=== PATIENT | female | born 1945 | race Caucasian/White ===

== ENCOUNTER 2016-12-08 11:40 | Inpatient (IN) | payer MEDICARE, BC ==
[2016-12-08] MEDS ORDERED: ALBUTEROL NEB SOL 2.5MG/3ML 1 VIAL SOL NEB PRN (11:52)
[2016-12-08] MEDS: SOLUMEDROL 125 MG/2 ML 125 MG/2 ML PDS IV SCH ×2 (12:08→18:52)
[2016-12-08] MEDS: ALBUTEROL/IPRATROPIUM 1 VIAL SOL INH PRN (12:09)
[2016-12-08] MEDS: LEVOFLOXACIN 500 MG TAB PO SCH (12:12)
[2016-12-08 12:30] LABS: CALCIUM 8.9 mg/dl (8.5-10.1); POTASSIUM 4.4 mMol/L (3.5-5.1)
[2016-12-08] MEDS: SODIUM CHLORIDE 0.9% FLUSH 10 ML SOL IV SCH ×2 (12:48→21:22)
[2016-12-08] MEDS ORDERED: NOVOLOG FLEXPEN SC ONE (15:01)
[2016-12-08] MEDS: NOVOLOG FLEXPEN SC SCH ×2 (17:15→21:18)
[2016-12-08] MEDS ORDERED: AMLODIPINE 5 MG TAB PO ONE (18:45)
[2016-12-08] MEDS: INSULIN GLARGINE, RECOMBINAN 100 U/ML SOL SC SCH (21:17)
[2016-12-08] MEDS: GABAPENTIN 300 MG CAP PO SCH (21:20)
[2016-12-08] MEDS: LOVASTATIN 10 MG TAB PO SCH (21:20)
[2016-12-09] MEDS: TRAZODONE HYDROCHLORIDE 50 MG TAB PO SCH ×2 (00:26→20:28)
[2016-12-09] MEDS: SOLUMEDROL 125 MG/2 ML 125 MG/2 ML PDS IV SCH ×4 (00:28→18:54)
[2016-12-09] MEDS: SODIUM CHLORIDE 0.9% FLUSH 10 ML SOL IV SCH ×5 (00:32→20:29)
[2016-12-09] MEDS ORDERED: ACETAMINOPHEN 325 MG PO ONE (04:45)
[2016-12-09 07:47] LABS: BASOPHILS % (AUTO) 0 % (0-3); EOSINOPHILS % (AUTO) 0 % (0-9); HEMATOCRIT 39 % (35-47); MEAN CORPUSCULAR VOLUME 92 fL (81-99); MONOCYTES % (AUTO) 2.1 % (0-12); NEUTROPHILS % (AUTO) 87.9 % (37-80)
[2016-12-09 07:56] LABS: CALCIUM 9.7 mg/dl (8.5-10.1); POTASSIUM 4.1 mMol/L (3.5-5.1)
[2016-12-09] MEDS: ALBUTEROL/IPRATROPIUM 1 VIAL SOL INH PRN (08:06)
[2016-12-09] MEDS: LISINOPRIL 20 MG TAB PO SCH (09:00)
[2016-12-09] MEDS: LEVOFLOXACIN 500 MG TAB PO SCH (09:00)
[2016-12-09] MEDS: AMLODIPINE 5 MG TAB PO SCH (09:00)
[2016-12-09] MEDS ORDERED: TRAZODONE HCL PO SCH (09:00)
[2016-12-09] MEDS ORDERED: LEVOFLOXACIN 500 MG TAB PO SCH (09:00)
[2016-12-09] MEDS: GABAPENTIN 300 MG CAP PO SCH ×3 (09:00→20:28)
[2016-12-09] MEDS: MULTIVITAMIN2 1 EA TAB PO SCH (09:01)
[2016-12-09] MEDS: MONTELUKAST SODIUM 10 MG TAB PO SCH (09:01)
[2016-12-09] MEDS: ENOXAPARIN 40 MG SOL SC SCH (09:01)
[2016-12-09] MEDS: LORATADINE 10 MG TAB PO SCH (09:01)
[2016-12-09] MEDS: NOVOLOG FLEXPEN SC SCH ×7 (09:02→20:29)
[2016-12-09] MEDS: ALBUTEROL/IPRATROPIUM 1 VIAL SOL INH SCH ×3 (10:48→20:38)
[2016-12-09] MEDS: ASPIRIN 325 MG TAB PO PRN ×2 (10:53→17:43)
[2016-12-09] MEDS: PANTOPRAZOLE SODIUM 40 MG ECT PO SCH (10:54)
[2016-12-09] MEDS: DM/GUAIFENESIN SYRUP 10 ML SYRP PO SCH (11:03)
[2016-12-09] MEDS: INSULIN GLARGINE, RECOMBINAN 100 U/ML SOL SC SCH (20:26)
[2016-12-09] MEDS: LOVASTATIN 10 MG TAB PO SCH (20:28)
[2016-12-10] MEDS: SOLUMEDROL 125 MG/2 ML 125 MG/2 ML PDS IV SCH ×2 (01:09→06:20)
[2016-12-10] MEDS: SODIUM CHLORIDE 0.9% FLUSH 10 ML SOL IV SCH ×3 (01:10→13:59)
[2016-12-10] MEDS: ALBUTEROL/IPRATROPIUM 1 VIAL SOL INH SCH ×3 (02:42→14:00)
[2016-12-10] MEDS: ASPIRIN 325 MG TAB PO PRN (06:31)
[2016-12-10] MEDS: ENOXAPARIN 40 MG SOL SC SCH (08:26)
[2016-12-10] MEDS: PANTOPRAZOLE SODIUM 40 MG ECT PO SCH (08:26)
[2016-12-10] MEDS: MONTELUKAST SODIUM 10 MG TAB PO SCH (08:26)
[2016-12-10] MEDS: DM/GUAIFENESIN SYRUP 10 ML SYRP PO SCH (08:27)
[2016-12-10] MEDS: LEVOFLOXACIN 500 MG TAB PO SCH (08:27)
[2016-12-10] MEDS: LISINOPRIL 20 MG TAB PO SCH (08:27)
[2016-12-10] MEDS: LORATADINE 10 MG TAB PO SCH (08:27)
[2016-12-10] MEDS: GABAPENTIN 300 MG CAP PO SCH ×2 (08:27→14:00)
[2016-12-10] MEDS: AMLODIPINE 5 MG TAB PO SCH (08:28)
[2016-12-10] MEDS: MULTIVITAMIN2 1 EA TAB PO SCH (08:28)
[2016-12-10] MEDS: NOVOLOG FLEXPEN SC SCH ×6 (08:33→17:09)
[2016-12-10] MEDS ORDERED: SENNOSIDES A AND B 8.6 MG TAB PO PRN (09:36)
[2016-12-10] MEDS ORDERED: DIAZEPAM 5 MG TAB PO ONE (09:45)
[2016-12-10] MEDS ORDERED: METOPROLOL SUCCINATE 25 MG TAB.ER.24H PO SCH (10:00)
[2016-12-10] MEDS ORDERED: METOPROLOL SUCCINATE 50 MG ER TAB ONE (10:37)
[2016-12-10 17:15] VITALS: BP 161/81; PULSE 88; RESP 18; TEMP 97.7; O2SAT 95
[2016-12-11] MEDS ORDERED: METOPROLOL SUCCINATE 50 MG TER PO SCH (09:00)
[2016-12-11] MEDS ORDERED: MULTIVITAMIN2 1 EA TAB PO SCH (09:00)
== END 2016-12-10 19:00 | disposition home or self-care (01) | DRG 190 ==
LOC: ACUTE CARE 11:40
PROVIDERS: ADMIT Family Medicine; ATTEND Family Medicine
DX: J44.0 Chronic obstructive pulmonary disease with (acute) lower respiratory infection (principal); J18.9 Pneumonia, unspecified organism; J20.9 Acute bronchitis, unspecified; I10 Essential (primary) hypertension; E11.9 Type 2 diabetes mellitus without complications; Z79.4 Long term (current) use of insulin; J44.1 Chronic obstructive pulmonary disease with (acute) exacerbation; N28.89 Other specified disorders of kidney and ureter; K80.20 Calculus of gallbladder without cholecystitis without obstruction
CPT/HCPCS: 36415; 71275; 74178; 80048; 82962; 83880; 85025; 85378; 94150; 94640; 94664; J1650; J1817; J2930; J7620; Q9967; J1815